=== PATIENT | female | born 1960 | race Caucasian/White ===

== ENCOUNTER 2020-10-04 02:38 | Inpatient (IN) | payer MEDICARE, MEDICAID ==
[~2020-10-04] VITALS: Ht 160 cm; Wt 77.6 kg
[2020-10-04 02:59] LABS: HEMOGLOBIN 14.6 gm/dl (12.3-15.3); RED BLOOD COUNT 4.6 M/UL (4.00-5.10); WHITE BLOOD COUNT 5.5 K/UL (4.5-11.0)
[2020-10-04 03:24] LABS: BUN/CREATININE RATIO 21 (0-10)
[2020-10-05 07:15] LABS: HEMOGLOBIN 13.4 gm/dl (12.3-15.3); RED BLOOD COUNT 4.29 M/UL (4.00-5.10)
[2020-10-05 07:22] LABS: WHITE BLOOD COUNT 7.3 K/UL (4.5-11.0)
[2020-10-05 07:49] LABS: BUN/CREATININE RATIO 31 (0-10)
[2020-10-06 06:53] LABS: HEMOGLOBIN 13.9 gm/dl (12.3-15.3); RED BLOOD COUNT 4.45 M/UL (4.00-5.10)
[2020-10-06 06:57] LABS: WHITE BLOOD COUNT 10.1 K/UL (4.5-11.0)
[2020-10-06 07:20] LABS: BUN/CREATININE RATIO 41 (0-10)
[2020-10-07 02:58] LABS: HEMOGLOBIN 13.1 gm/dl (12.3-15.3); RED BLOOD COUNT 4.23 M/UL (4.00-5.10)
[2020-10-07 03:23] LABS: BUN/CREATININE RATIO 31 (0-10); WHITE BLOOD COUNT 6.7 K/UL (4.5-11.0)
[2020-10-07] MEDS ORDERED: AUGMENTIN 875-1 EACH PO (11:34)
[2020-10-07] MEDS ORDERED: IPRAT-ALBUT 0.5-3 ML NEB (11:34)
[2020-10-07] MEDS ORDERED: PULMICORT0.5 MG/2 M INH (11:34)
[2020-10-07] MEDS ORDERED: PROTONIX 40 MG40 M1 PO (11:34)
[2020-10-07] MEDS ORDERED: ELIQUIS 2.5 MG2.5 MG PO (11:42)
[2020-10-07] MEDS ORDERED: NEBULIZER UNIT INH (11:42)
[2020-10-07] MEDS ORDERED: DEXAMETHASONE2 MG PO (11:42)
== END 2020-10-07 16:54 | disposition home or self-care (01) | DRG 177 ==
LOC: ER1 02:38 → CDU 06:02 → MED SURG 4 23:19
PROVIDERS: Emergency Medicine; Internal Medicine; ADMIT Internal Medicine
PROC: 8E0ZXY6 Isolation (ICD-10-PCS; principal; 2020-10-04)
PROC: XW033E5 Introduction of Remdesivir Anti-infective into Peripheral Vein, Percutaneous Approach, New Technology Group 5 (ICD-10-PCS; 2020-10-04)
PROC: 3E0333Z Introduction of Anti-inflammatory into Peripheral Vein, Percutaneous Approach (ICD-10-PCS; 2020-10-04)
DX: U07.1 COVID-19 (principal); J12.82 Pneumonia due to coronavirus disease 2019; J96.01 Acute respiratory failure with hypoxia; E87.6 Hypokalemia; Z88.2 Allergy status to sulfonamides; Z98.890 Other specified postprocedural states; Z79.899 Other long term (current) drug therapy
CPT/HCPCS: 36415; 36600; 71045; 80053; 82550; 82553; 82728; 82803; 82962; 83605; 83615; 83874; 83880; 84439; 84443; 84484; 85025; 85379; 85652; 86140; 87040; 93005; 94640; 94664; 94760; 96374; 99285; J0456; J0696; J1100; J1650; J3480; J7030; U0002

== ENCOUNTER → 2020-12-03 | Outpatient (CLI) | payer MEDICARE ==
[~2020-12-03] MED LIST: AUGMENTIN 875-1 EACH PO; DEXAMETHASONE2 MG PO; ELIQUIS 2.5 MG2.5 MG PO; IPRAT-ALBUT 0.5-3 ML NEB; NEBULIZER UNIT INH; PROTONIX 40 MG40 M1 PO; PULMICORT0.5 MG/2 M INH
== END ==
LOC: MAMO 09:55
DX: Z12.31 Encounter for screening mammogram for malignant neoplasm of breast (principal)
CPT/HCPCS: 77063; 77067

== ENCOUNTER → 2021-08-11 | Outpatient (CLI) | payer MEDICARE ==
[2021-08-11 10:43] LABS: HEMOGLOBIN 15.1 gm/dl (12.3-15.3); RED BLOOD COUNT 4.82 M/UL (4.00-5.10); WHITE BLOOD COUNT 5.2 K/UL (4.5-11.0)
== END ==
LOC: OPSV2 10:00
PROVIDERS: Obstetrics & Gynecology
DX: Z01.818 Encounter for other preprocedural examination (principal); N81.10 Cystocele, unspecified
CPT/HCPCS: 36415; 71046; 81001; 85025; 93005

== ENCOUNTER 2021-08-17 05:31 | Day surgery (SDC) | payer MEDICARE ==
[~2021-08-17] VITALS: Ht 160 cm; Wt 72.6 kg
[2021-08-17] MEDS ORDERED: MIRALAX 119 GR119 GM PO (09:26)
[2021-08-17] MEDS ORDERED: NAPROXEN 375 M375 MG PO (09:26)
[2021-08-17] MEDS ORDERED: HYDROCODON-ACE1 EAC2 PO (09:26)
[2021-08-17 12:17] LABS: BUN/CREATININE RATIO 20 (0-10)
[2021-08-18 03:09] LABS: HEMOGLOBIN 12.9 gm/dl (12.3-15.3); RED BLOOD COUNT 4.08 M/UL (4.00-5.10); WHITE BLOOD COUNT 7.5 K/UL (4.5-11.0)
[2021-08-18 03:26] LABS: BUN/CREATININE RATIO 16 (0-10)
== END 2021-08-18 11:49 | disposition home or self-care (01) ==
LOC: M/S 05:31 → OR 05:31 → M/S 10:16 → OR 13:45
PROVIDERS: Physician Assistant
DX: N72 Inflammatory disease of cervix uteri (principal); N80.0 Endometriosis of uterus; N81.4 Uterovaginal prolapse, unspecified; N39.3 Stress incontinence (female) (male); N32.0 Bladder-neck obstruction; N36.41 Hypermobility of urethra; Z88.2 Allergy status to sulfonamides
CPT/HCPCS: 36415; 80048; 85025; C1769; C1771; J0690; J1100; J1885; J2001; J2405; J2704; J2795; J3010; J7120